=== PATIENT | male | born 2000 ===

== ENCOUNTER 2022-05-06 15:17 | Emergency (ER) | payer OTHER ==
[2022-05-06 15:27] VITALS: BP 112/55
[2022-05-06] MEDS ORDERED: ONDANSETRON 4 MG/2 ML INJ IV ONE (15:44)
[2022-05-06] MEDS ORDERED: SODIUM CHLORIDE 0.9% 1000 ML 1,000 ML IV ONE (15:44)
--- NOTE | 2022-05-06 15:50 | Emergency Department Report ---
ED General Adult HPI - General Chief complaint: Nausea/Vomiting/Diarrhea Stated complaint: NAUSEA/VOMITING/HYPOTENSION PUI?: No Time Seen by Provider: 05/06/22 15:39 Source: patient, EMS Mode of arrival: Ambulatory Limitations: No Limitations - History of Present Illness Initial comments: Per triage nurse note: [place] then [place] [employer] Where he felt sick and +N/V. Patient provide the same information. States he took 3 edibles CBD and now feels nauseated and has vomited. Denies abdominal pain. Denies any other symptoms. Denies fever, chill, night sweats, dizziness, lightheaded, blurry vision, ear pain, sore throat, chest pain, palpitation, dyspnea, cough, abdominal pain, diarrhea, constipation, dysuria, myalgia, arthralgia, new rash/lesion, and heat or cold intolerance. Severity scale (0 -10): 0 - Related Data Allergies Allergy/AdvReac Type Severity Reaction Status Date / Time No Known Allergies Allergy Unverified 05/06/22 15:27 ED Review of Systems ROS: Stated complaint: NAUSEA/VOMITING/HYPOTENSION Other details as noted in HPI Comment: All other systems reviewed and negative Constitutional: no symptoms reported, see HPI Eyes: as per HPI ENT: as per HPI Respiratory: no symptoms reported, see HPI Cardiovascular: as per HPI Endocrine: no symptoms reported, see HPI Gastrointestinal: nausea, vomiting. denies: abdominal pain, diarrhea, constipation, hematemesis, melena, hematochezia Genitourinary: as per HPI Musculoskeletal: as per HPI Skin: as per HPI Neurological: as per HPI Psychiatric: as per HPI Hematological/Lymphatic: as per HPI ED Past Medical Hx - Past Medical History Previous Medical History?: No - Surgical History Past Surgical History?: No - Family History Family history: no significant ED Physical Exam - General Limitations: No Limitations General appearance: alert, in no apparent distress - Head Head exam: Present: atraumatic, normocephalic, normal inspection - Eye Eye exam: Present: normal appearance, PERRL, EOMI Pupils: Present: normal accommodation - ENT ENT exam: Present: normal exam, mucous membranes moist - Neck Neck exam: Present: normal inspection, full ROM - Respiratory Respiratory exam: Present: normal lung sounds bilaterally - Cardiovascular Cardiovascular Exam: Present: regular rate, normal rhythm, normal heart sounds - GI/Abdominal GI/Abdominal exam: Present: soft - Extremities Exam Extremities exam: Present: normal inspection, full ROM, normal capillary refill - Back Exam Back exam: Present: normal inspection - Neurological Exam Neurological exam: Present: alert, oriented X3, CN II-XII intact - Psychiatric Psychiatric exam: Present: normal affect, normal mood - Skin Skin exam: Present: warm, normal color ED Course Vital Signs 05/06/22 15:20 Temperature 98.6 F Pulse Rate 85 Respiratory 18 Rate Blood Pressure 112/55 [Left] O2 Sat by Pulse 98 Oximetry - Reevaluation(s) Reevaluation #1: 05/06/22 19:00 NURSE BROUGHT TO MY ATTENTION THAT BECAUSE THEY WERE BUSY AND 'NO ONE' WENT INTO PATIENT'S ROOM, PATIENT TOOK OUT THE IV AND WALKED OUT. ELOPED. ED Medical Decision Making - Lab Data Result diagrams: 05/06/22 17:17 05/06/22 17:17 Critical care attestation.: If time is entered above; I have spent that time in minutes in the direct care of this critically ill patient, excluding procedure time. ED Disposition Clinical Impression: Nausea, Illicit drug use Disposition: 07 LEFT AWOL/ELOPED Is pt being admited?: No Does the pt Need Aspirin: No Condition: Stable Time of Disposition: 19:01
[2022-05-06 17:55] LABS: Hematocrit 42.9 % (35.5-45.6); Hemoglobin 14.3 gm/dl (11.8-15.2); Mean Corpuscular HGB Conc 33 % (32-34); Mean Corpuscular Volume 92 fl (84-94); Platelet Count 255 K/mm3 (140-440); Red Blood Count 4.67 M/mm3 (3.65-5.03)
[2022-05-06 18:01] LABS: Alanine Aminotransferase 12 units/L (7-56); Albumin 4.3 g/dL (3.9-5); BUN/Creatinine Ratio 13; Blood Urea Nitrogen 14 mg/dL (9-20); Calcium 8.7 mg/dL (8.4-10.2); Hemolysis Index 42
== END 2022-05-06 18:54 | disposition left against medical advice (07) ==
LOC: ED 15:17
DX: R11.2 Nausea with vomiting, unspecified (principal); F19.90 Other psychoactive substance use, unspecified, uncomplicated
CPT/HCPCS: 36415; 80053; 82140; 83735; 85027; 96361; 96374; 99283; J2405; J7030